=== PATIENT | female | born 1965 | race Caucasian/White ===

== ENCOUNTER 2016-06-12 22:41 | Emergency (ER) | payer OTHER ==
[~2016-06-12] VITALS: Ht 172.7 cm; Wt 90.7 kg
[~2016-06-12 22:41] MED LIST: BUPROPION HCL300 MG PO; BUPROPION XL300 M1 PO; CARISOPRODOL350 M1 PO; CARISOPRODOL350 MG PO; CLONAZEPAM1 MG PO; CRANBERRY FRUI425 MG PO; DOCUSATE100 MG PO; DULOXETINE HCL30 MG PO; FLOVENT HF0.22 MG/Ac INH; FLOVENT HFA12 G1 INH; KLONOPIN1 M1 PO; MEDROL4 M2 PO; NAPROXEN500 M2 PO; NASONEX17 GM NASB; NICOTINE T21 MG/24 H TOP; OXYCODONE HCL15 MG PO; PREDNISONE 20MG20 MG PO; PROAIR HFA0.09 MG/Ac INH; PROAIR HFA8.5 GM INH; THEOPHYLLINE A300 MG PO; THEOPHYLLINE300 MG PO; TRIAMCINOLONE A15 G2 TOP; VALACYCLOVIR1 GM PO; ZITHROMAX Z-PA250 M1 PO
--- NOTE | 2016-06-12 23:01 | ED PSYCHIATRIC COMPLAINT ---
History of Present Illness General Chief Complaint: Psychiatric Related Complaint Stated Complaint: BIBA, +SI Source: patient, old records, EMS, police Exam Limitations: no limitations Vital Signs & Intake/Output Vital Signs & Intake/Output Vital Signs Date Time Temp Pulse Resp B/P Pulse O2 O2 Flow FiO2 Ox Delivery Rate 06/13 0618 97.3 90 20 133/95 97 Room Air 06/13 0244 97.7 89 18 135/75 97 Room Air 06/12 2348 96.8 88 18 123/58 95 Room Air ED Intake and Output 06/13 0000 06/12 1200 Intake Total Output Total Balance Patient 200 lb Weight Allergies Coded Allergies: Sulfa (Sulfonamide Antibiotics) (Severe, UNKNOWN 06/22/15) ibuprofen (EYE SWELLING 06/22/15) naproxen (ANKLE SWELLING 06/22/15) Reconcile Medications Albuterol Sulfate (Proair Hfa) 0.09 MG/Actuation FAIZA 2 PUFF INH TID PRN ASTHMA (Reported) Albuterol Sulfate (Proair Hfa) 8.5 GM HFA.AER.AD 2 PUF INH Q4-6 PRN PRN asthma Azithromycin (Zithromax Z-Triston) 250 MG CAP 1 DP PO AD . 2 the first day followed by 1 for days 2-5 BUPROPION HCL (Bupropion XL) 300 MG TAB.ER.24H 1 TAB PO DAILY SMOKING CESSATION (Reported) Bupropion HCl (Bupropion XL) 300 MG TAB.ER.24H 1 TAB PO DAILY depression Carisoprodol 350 MG TABLET 1 TAB PO TID PRN MUSCLE RELAXER (Reported) Carisoprodol 350 MG TABLET 1 TAB PO TIDPRN PRN PAIN Clonazepam 1 MG TABLET 1 TAB PO TID PRN ANXIETY (Reported) Clonazepam (Klonopin) 1 MG TABLET 1 TAB PO DAILY depression Cranberry (Cranberry Fruit) (Unknown Strength) CAP (Unknown Dose) PO DAILY SUPPLEMENT (Reported) Docusate Sodium 100 MG CAPSULE 1 SGL PO BID SUPPLEMENT (Reported) Duloxetine HCl 30 MG CAPSULE.DR 1 CAP PO DAILY fibromyalgia Fluticasone Propionate (Flovent Hfa) 0.22 MG/Actuation FAIZA 2 PUFF INH BID ASTHMA (Reported) 220 MCG PER PUFF Fluticasone Propionate (Flovent Hfa) 12 GM AER.W.ADAP 2 PUF INH BID asthma Methylprednisolone. (Medrol) 4 MG TAB.DS.PK 1 DP PO AD wheezing, laryngitis, back Mometasone Furoate (Nasonex) 17 GM SPRAY.PUMP 2 SPRAY NASB DAILY rhinitis Naproxen 500 MG TABLET 1 TAB PO BID pain Nicotine (Nicotine Transdermal System) 21 MG/24 HR TDM 1 PATCH TOP DAILY SMOKING CESSATION (Reported) OXYCODONE HCL (Oxycodone HCl) 15 MG TABLET 1 TAB PO 4 TIMES/DAY PRN PAIN ( Reported) Prednisone 20 MG TABLET 1 TAB PO AD INFLAMMATION 3 TABS PO DAY 1-3 2 TABS PO DAY 4-6 1 TAB PO DAY 7-9 THEOPHYLLINE ANHYDROUS (Theophylline Anhydrous) 300 MG TAB.ER.12H 1 TAB PO DAILY ASTHMA (Reported) Theophylline Anhydrous 300 MG TAB.ER.12H 1 TAB PO BID . Triamcinolone Acetonide 15 GM CREAM..G. 1 BRANDIE TOP BID exzcema 0.1% cream: apply to affected area(s) VALACYCLOVIR HCL (Valacyclovir) 1,000 MG TABLET 1 TAB PO BID HERPES (Reported ) Triage Note: PT BIBA ON POLICE PAPER. PER PD PT TOLD THEM "IM JUST TIRED OF LIVING, IM DEPRESSED". PT TOLD FRIEND THAT SHE WAS GOING TO HARM HERSELF. PER EMS PT TOOK CLONIPIN AND DRANK TWO GLASSES OF VODKA MIXED WITH TOMATO JUICE. PT ARRIVES RESISTANT TO STAFF, NON-COMBATIVE BUT ARGUMENTATIVE AND NON-COMPLIANT WITH REQUESTS. Triage Nurses Notes Reviewed? yes HPI: Patient brought in on a police paper for suicidal ideations. Patient was drinking tonight and took Klonopin. Patient states that she was having problems with her apartment and stated that she might as well to speak . Patient denies any true suicidal ideation. Patient denies any homicidal ideations. Patient denies any hallucinations. There is no plan. (BRAYDEN KITCHEN,KAROL Nuñez) Past History Travel History Traveled to [place] past 21 day No Medical History Any Pertinent Medical History? 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 No (BRAYDEN KITCHEN,KAROL Nuñez) Review of Systems Review of Systems Constitutional: Reports: no symptoms. EENTM: Reports: no symptoms. Respiratory: Reports: no symptoms. Cardiovascular: Reports: no symptoms. GI: Reports: no symptoms. Genitourinary: Reports: no symptoms. Musculoskeletal: Reports: no symptoms. Skin: Reports: no symptoms. Neurological/Psychological: Reports: see HPI, depressed. Hematologic/Endocrine: Reports: no symptoms. Immunologic/Allergic: Reports: no symptoms. All Other Systems: Reviewed and Negative (BRAYDEN KITCHEN,KAROL Nuñez) Physical Exam Physical Exam General Appearance: well developed/nourished, mild distress Head: atraumatic Eyes: Bilateral: PERRL, EOMI. Ears, Nose, Throat: normal pharynx, normal ENT inspection, hearing grossly normal Neck: normal inspection, supple Respiratory: normal breath sounds Cardiovascular: regular rate/rhythm Gastrointestinal: soft, non-tender Extremities: normal range of motion Neurological/Psychiatric: no motor/sensory deficits, awake, agitated, alert, oriented x 3 Appearance/Memory/Insight: appropriate appearance, appropriate insight Behavoir/Eye Contact/Speech: cooperative, normal speech, good eye contact Thoughts/Hallucinations: normal thought pattern, no apparent hallucination Skin: intact, normal color, warm/dry SAD PERSONS Done? CRISIS CONSULT OBTAINED (BRAYDEN KITCHEN,KAROL Nuñez) Progress Differential Diagnosis: drug intoxication, drug overdose, drug withdrawal, electrolyte abnormality Plan of Care: Orders Procedure Date/time Status Regular Diet 06/13 B Active Continuous Observation Monitor 06/13 1900 Active Continuous Observation Monitor 06/13 1500 Active Continuous Observation Monitor 06/13 1100 Active Continuous Observation Monitor 06/13 0700 Active Continuous Observation Monitor 06/12 230 Active URINE DRUGS OF ABUSE 06/12 230 Complete ETHANOL 06/12 2300 Complete COMPREHENSIVE METABOLIC PANEL 06/12 2300 Complete CBC WITHOUT DIFFERENTIAL 06/12 2300 Complete ED CRISIS PSYCH CONSULT 06/12 230 Active Current Medications Sig/Wilfredo Start time Last Medication Dose Stop Time Status Admin Albuterol Sulfate 2 PUF Q4P PRN 06/13 0730 AC (Ventolin) Laboratory Tests 06/13/16 0248: Urine Opiates Screen 306.00, Methadone Screen < 40, Barbiturate Screen < 60, Ur Phencyclidine Scrn < 6.00, Amphetamines Screen 126, U Benzodiazepines Scrn 147, Urine Cocaine Screen < 50, Urine Cannabis Screen 12.70 06/12/16 2314: Anion Gap 13, Estimated GFR > 60, BUN/Creatinine Ratio 23.3, Glucose 99, Calcium 9.6, Total Bilirubin 0.2, AST 122 H, ALT 92 H, Alkaline Phosphatase 136 H, Total Protein 6.2 L, Albumin 3.5, Globulin 2.7, Albumin/Globulin Ratio 1.3, CBC w Diff NO MAN DIFF REQ, RBC 3.73 L, MCV 102.0 H, MCH 34.3 H, RDW 14.1, MPV 7.7, Gran % 50.8, Lymphocytes % 31.6, Monocytes % 9.0, Eosinophils % 8.0 H, Basophils % 0.6, Absolute Granulocytes 2.4, Absolute Lymphocytes 1.5, Absolute Monocytes 0.4, Absolute Eosinophils 0.4, Absolute Basophils 0, PUBS MCHC 33.7, Serum Alcohol 128.0 Hand-Off Endorsed To: KIM PETERS MD Endorsed Time: 0700 Pending: consult (BRAYDEN KITCHEN,KAROL Nuñez) Comments: Now sober, no suicidal ideation. (KIM PETERS MD) Departure Departure Condition: Stable Referrals: JEANIE COOK MD (PCP/Family) (KAROL OWEN MD) Departure Time of Disposition: 740 Disposition: HOME OR SELF CARE Clinical Impression Primary Impression: Depressed Qualifiers: Depression Type: unspecified Qualified Code: F32.9 - Major depressive disorder, single episode, unspecified Secondary Impressions: Alcohol intoxication delirium Departure Forms: General Discharge Information (KIM PETERS MD)
[2016-06-12 23:34] LABS: ABSOLUTE BASOPHIL COUNT 0 /CUMM (0.0-0.2); ABSOLUTE EOSINOPHIL COUNT 0.4 /CUMM (0.0-0.7); ABSOLUTE GRANULOCYTE CT 2.4 /CUMM (1.4-6.5); ABSOLUTE LYMPH COUNT 1.5 /CUMM (1.2-3.4); ABSOLUTE MONOCYTE COUNT 0.4 /CUMM (0.10-0.60); BASOPHIL % 0.6 % (0.0-2.0); GRANULOCYTE % 50.8 % (42.2-75.2); MEAN CORPUSCULAR HGB 34.3 PG (27.0-31.0); MEAN CORPUSCULAR HGB CONC 33.7 G/DL (33.0-37.0); MEAN PLATELET VOLUME 7.7 FL (7.4-10.4); PLATELET COUNT 252 /CUMM (130-400); RBC DISTRIBUTION WIDTH 14.1 % (11.5-14.5); RED BLOOD CELL CT 3.73 /CUMM (4.20-5.40); WHITE BLOOD CELL COUNT 4.7 /CUMM (4.8-10.8)
[2016-06-13 07:50] VITALS: BP 122/60
== END 2016-06-13 07:45 ==
LOC: ERH 22:41
PROVIDERS: Emergency Medicine
DX: F32.9 Major depressive disorder, single episode, unspecified (principal); F10.121 Alcohol abuse with intoxication delirium
CPT/HCPCS: 80307; G0480; J3490

== ENCOUNTER 2016-08-25 09:23 | Emergency (ER) | payer OTHER ==
[~2016-08-25] VITALS: Ht 170.2 cm; Wt 90.7 kg
--- NOTE | 2016-08-25 11:41 | ED GENERAL ADULT ---
History of Present Illness General Chief Complaint: Low Back Pain/Injury Stated Complaint: CHRONIC LBP,HIP PAIN Vital Signs & Intake/Output Vital Signs & Intake/Output Vital Signs Date Time Temp Pulse Resp B/P B/P Pulse O2 O2 Flow FiO2 Mean Ox Delivery Rate 08/25 1150 97.4 104 18 133/91 92 Room Air 08/25 1010 97.5 114 18 138/89 98 Room Air Allergies Coded Allergies: Sulfa (Sulfonamide Antibiotics) (Severe, UNKNOWN 06/22/15) ibuprofen (EYE SWELLING 06/22/15) naproxen (ANKLE SWELLING 06/22/15) Reconcile Medications Albuterol Sulfate (Proair Hfa) 0.09 MG/Actuation FAIZA 2 PUFF INH TID PRN ASTHMA (Reported) Albuterol Sulfate (Proair Hfa) 8.5 GM HFA.AER.AD 2 PUF INH Q4-6 PRN PRN asthma Azithromycin (Zithromax Z-Triston) 250 MG CAP 1 DP PO AD . 2 the first day followed by 1 for days 2-5 BUPROPION HCL (Bupropion XL) 300 MG TAB.ER.24H 1 TAB PO DAILY SMOKING CESSATION (Reported) Bupropion HCl (Bupropion XL) 300 MG TAB.ER.24H 1 TAB PO DAILY depression Carisoprodol 350 MG TABLET 1 TAB PO TID PRN MUSCLE RELAXER (Reported) Carisoprodol 350 MG TABLET 1 TAB PO TIDPRN PRN PAIN Cephalexin (Keflex) 500 MG CAPSULE 1 CAP PO TID cellulitis Clonazepam 1 MG TABLET 1 TAB PO TID PRN ANXIETY (Reported) Clonazepam (Klonopin) 1 MG TABLET 1 TAB PO DAILY depression Cranberry (Cranberry Fruit) (Unknown Strength) CAP (Unknown Dose) PO DAILY SUPPLEMENT (Reported) Docusate Sodium 100 MG CAPSULE 1 SGL PO BID SUPPLEMENT (Reported) Duloxetine HCl 30 MG CAPSULE.DR 1 CAP PO DAILY fibromyalgia Fluticasone Propionate (Flovent Hfa) 0.22 MG/Actuation FAIZA 2 PUFF INH BID ASTHMA (Reported) 220 MCG PER PUFF Fluticasone Propionate (Flovent Hfa) 12 GM AER.W.ADAP 2 PUF INH BID asthma Methylprednisolone. (Medrol) 4 MG TAB.DS.PK 1 DP PO AD wheezing, laryngitis, back Mometasone Furoate (Nasonex) 17 GM SPRAY.PUMP 2 SPRAY NASB DAILY rhinitis Naproxen 500 MG TABLET 1 TAB PO BID pain Nicotine (Nicotine Transdermal System) 21 MG/24 HR TDM 1 PATCH TOP DAILY SMOKING CESSATION (Reported) OXYCODONE HCL (Oxycodone HCl) 15 MG TABLET 1 TAB PO 4 TIMES/DAY PRN PAIN ( Reported) Prednisone 20 MG TABLET 1 TAB PO AD INFLAMMATION 3 TABS PO DAY 1-3 2 TABS PO DAY 4-6 1 TAB PO DAY 7-9 THEOPHYLLINE ANHYDROUS (Theophylline Anhydrous) 300 MG TAB.ER.12H 1 TAB PO DAILY ASTHMA (Reported) Theophylline Anhydrous 300 MG TAB.ER.12H 1 TAB PO BID . VALACYCLOVIR HCL (Valacyclovir) 1,000 MG TABLET 1 TAB PO BID HERPES (Reported ) Triage Note: PT COMPLAINS OF CHRONIC LOW BACK PAIN THAT HAS BEEN INCREASING OVER THE PAST 2 MONTHS. PT TAKES OXYCODONE,SOMA,NAPROXEN, LIDOCAINE PATCHES. PT STATES THAT SHE HAD APPOINTMENT WITH HER PMD AND IS SUPOSSED TO MAKE APPOINTMENT WITH [facility] TO GET INTO PAIN MANAGEMENT. STATES THAT SHE CANT WALK AROUND, THAT IT HURTS TO SIT ON TOILET. 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
--- NOTE | 2016-08-25 12:11 | ED NECK/BACK PAIN COMPLAINT ---
History of Present Illness General Chief Complaint: Low Back Pain/Injury Stated Complaint: CHRONIC LBP,HIP PAIN Vital Signs & Intake/Output Vital Signs & Intake/Output Vital Signs Date Time Temp Pulse Resp B/P B/P Pulse O2 O2 Flow FiO2 Mean Ox Delivery Rate 08/25 1010 97.5 114 18 138/89 98 Room Air Allergies Coded Allergies: Sulfa (Sulfonamide Antibiotics) (Severe, UNKNOWN 06/22/15) ibuprofen (EYE SWELLING 06/22/15) naproxen (ANKLE SWELLING 06/22/15) Reconcile Medications Albuterol Sulfate (Proair Hfa) 0.09 MG/Actuation FAIZA 2 PUFF INH TID PRN ASTHMA (Reported) Albuterol Sulfate (Proair Hfa) 8.5 GM HFA.AER.AD 2 PUF INH Q4-6 PRN PRN asthma Azithromycin (Zithromax Z-Triston) 250 MG CAP 1 DP PO AD . 2 the first day followed by 1 for days 2-5 BUPROPION HCL (Bupropion XL) 300 MG TAB.ER.24H 1 TAB PO DAILY SMOKING CESSATION (Reported) Bupropion HCl (Bupropion XL) 300 MG TAB.ER.24H 1 TAB PO DAILY depression Carisoprodol 350 MG TABLET 1 TAB PO TID PRN MUSCLE RELAXER (Reported) Carisoprodol 350 MG TABLET 1 TAB PO TIDPRN PRN PAIN Clonazepam 1 MG TABLET 1 TAB PO TID PRN ANXIETY (Reported) Clonazepam (Klonopin) 1 MG TABLET 1 TAB PO DAILY depression Cranberry (Cranberry Fruit) (Unknown Strength) CAP (Unknown Dose) PO DAILY SUPPLEMENT (Reported) Docusate Sodium 100 MG CAPSULE 1 SGL PO BID SUPPLEMENT (Reported) Duloxetine HCl 30 MG CAPSULE.DR 1 CAP PO DAILY fibromyalgia Fluticasone Propionate (Flovent Hfa) 0.22 MG/Actuation FAIZA 2 PUFF INH BID ASTHMA (Reported) 220 MCG PER PUFF Fluticasone Propionate (Flovent Hfa) 12 GM AER.W.ADAP 2 PUF INH BID asthma Methylprednisolone. (Medrol) 4 MG TAB.DS.PK 1 DP PO AD wheezing, laryngitis, back Mometasone Furoate (Nasonex) 17 GM SPRAY.PUMP 2 SPRAY NASB DAILY rhinitis Naproxen 500 MG TABLET 1 TAB PO BID pain Nicotine (Nicotine Transdermal System) 21 MG/24 HR TDM 1 PATCH TOP DAILY SMOKING CESSATION (Reported) OXYCODONE HCL (Oxycodone HCl) 15 MG TABLET 1 TAB PO 4 TIMES/DAY PRN PAIN ( Reported) Prednisone 20 MG TABLET 1 TAB PO AD INFLAMMATION 3 TABS PO DAY 1-3 2 TABS PO DAY 4-6 1 TAB PO DAY 7-9 THEOPHYLLINE ANHYDROUS (Theophylline Anhydrous) 300 MG TAB.ER.12H 1 TAB PO DAILY ASTHMA (Reported) Theophylline Anhydrous 300 MG TAB.ER.12H 1 TAB PO BID . Triamcinolone Acetonide 15 GM CREAM..G. 1 BRANDIE TOP BID exzcema 0.1% cream: apply to affected area(s) VALACYCLOVIR HCL (Valacyclovir) 1,000 MG TABLET 1 TAB PO BID HERPES (Reported ) Triage Note: PT COMPLAINS OF CHRONIC LOW BACK PAIN THAT HAS BEEN INCREASING OVER THE PAST 2 MONTHS. PT TAKES OXYCODONE,SOMA,NAPROXEN, LIDOCAINE PATCHES. PT STATES THAT SHE HAD APPOINTMENT WITH HER PMD AND IS SUPOSSED TO MAKE APPOINTMENT WITH [facility] TO GET INTO PAIN MANAGEMENT. STATES THAT SHE CANT WALK AROUND, THAT IT HURTS TO SIT ON TOILET. PT CRYING AT TRIAGE Triage Nurses Notes Reviewed? 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
--- NOTE | 2016-08-25 12:34 | ED UPPER/LOWER EXTREMITY COMPL ---
History of Present Illness General Chief Complaint: Low Back Pain/Injury Stated Complaint: CHRONIC LBP,HIP PAIN Source: patient Exam Limitations: no limitations Vital Signs & Intake/Output Vital Signs & Intake/Output Vital Signs Date Time Temp Pulse Resp B/P B/P Pulse O2 O2 Flow FiO2 Mean Ox Delivery Rate 08/25 1502 97.9 101 18 138/66 Room Air 08/25 1150 97.4 104 18 133/91 92 Room Air 08/25 1010 97.5 114 18 138/89 98 Room Air Allergies Coded Allergies: Sulfa (Sulfonamide Antibiotics) (Severe, UNKNOWN 06/22/15) ibuprofen (EYE SWELLING 06/22/15) naproxen (ANKLE SWELLING 06/22/15) Triage Note: PT COMPLAINS OF CHRONIC LOW BACK PAIN THAT HAS BEEN INCREASING OVER THE PAST 2 MONTHS. PT TAKES OXYCODONE,SOMA,NAPROXEN, LIDOCAINE PATCHES. PT STATES THAT SHE HAD APPOINTMENT WITH HER PMD AND IS SUPOSSED TO MAKE APPOINTMENT WITH [facility] TO GET INTO PAIN MANAGEMENT. STATES THAT SHE CANT WALK AROUND, THAT IT HURTS TO SIT ON TOILET. PT CRYING AT TRIAGE Triage Nurses Notes Reviewed? yes Onset: Abrupt Duration: day(s): (2-3) Timing: single episode today Severity: moderate, severe Severity Numbers: 10 Pain/Injury Location: Bilateral: Leg. No Modifying Factors: none Associated Symptoms: swelling, redness LMP (ages 10-50): post menopausal : No Patient currently breastfeeds: No HPI: 51-year-old female with history of chronic low back pain and chronic hip pain presents complaining of pain in her bilateral lower extremities for the past few days. Patient reports that she noticed redness swelling and pain in her left lower extremity extending from her foot up her leg. Patient additionally reports pain and swelling in her right lower extremity without any redness. She reports that she was hospitalized with cellulitis last year. She denies any trauma to the area, fevers, discharge, numbness, or tingling. Patient reports she's been taking oxycodone prescribed by her primary care doctor without significant improvement. (BRADY SALGADO,FITZ) Reconcile Medications Albuterol Sulfate (Proair Hfa) 0.09 MG/Actuation FAIZA 2 PUFF INH TID PRN ASTHMA (Reported) Albuterol Sulfate (Proair Hfa) 8.5 GM HFA.AER.AD 2 PUF INH Q4-6 PRN PRN asthma Azithromycin (Zithromax Z-Triston) 250 MG CAP 1 DP PO AD . 2 the first day followed by 1 for days 2-5 BUPROPION HCL (Bupropion XL) 300 MG TAB.ER.24H 1 TAB PO DAILY SMOKING CESSATION (Reported) Bupropion HCl (Bupropion XL) 300 MG TAB.ER.24H 1 TAB PO DAILY depression Carisoprodol 350 MG TABLET 1 TAB PO TID PRN MUSCLE RELAXER (Reported) Carisoprodol 350 MG TABLET 1 TAB PO TIDPRN PRN PAIN Cephalexin (Keflex) 500 MG CAPSULE 1 CAP PO TID cellulitis Clonazepam 1 MG TABLET 1 TAB PO TID PRN ANXIETY (Reported) Clonazepam (Klonopin) 1 MG TABLET 1 TAB PO DAILY depression Cranberry (Cranberry Fruit) (Unknown Strength) CAP (Unknown Dose) PO DAILY SUPPLEMENT (Reported) Docusate Sodium 100 MG CAPSULE 1 SGL PO BID SUPPLEMENT (Reported) Duloxetine HCl 30 MG CAPSULE.DR 1 CAP PO DAILY fibromyalgia Fluticasone Propionate (Flovent Hfa) 0.22 MG/Actuation FAIZA 2 PUFF INH BID ASTHMA (Reported) 220 MCG PER PUFF Fluticasone Propionate (Flovent Hfa) 12 GM AER.W.ADAP 2 PUF INH BID asthma Methylprednisolone. (Medrol) 4 MG TAB.DS.PK 1 DP PO AD wheezing, laryngitis, back Mometasone Furoate (Nasonex) 17 GM SPRAY.PUMP 2 SPRAY NASB DAILY rhinitis Naproxen 500 MG TABLET 1 TAB PO BID pain Nicotine (Nicotine Transdermal System) 21 MG/24 HR TDM 1 PATCH TOP DAILY SMOKING CESSATION (Reported) OXYCODONE HCL (Oxycodone HCl) 15 MG TABLET 1 TAB PO 4 TIMES/DAY PRN PAIN ( Reported) Prednisone 20 MG TABLET 1 TAB PO AD INFLAMMATION 3 TABS PO DAY 1-3 2 TABS PO DAY 4-6 1 TAB PO DAY 7-9 THEOPHYLLINE ANHYDROUS (Theophylline Anhydrous) 300 MG TAB.ER.12H 1 TAB PO DAILY ASTHMA (Reported) Theophylline Anhydrous 300 MG TAB.ER.12H 1 TAB PO BID . VALACYCLOVIR HCL (Valacyclovir) 1,000 MG TABLET 1 TAB PO BID HERPES (Reported ) (ISAEL HIGHTOWER DO) Past History Travel History Traveled to [place] past 21 day No Medical History Any Pertinent Medical History? see below for history Neurological: NONE EENT: laryngitis Cardiovascular: NONE Respiratory: asthma Gastrointestinal: NONE Hepatic: NONE Renal: NONE Musculoskeletal: CHRONIC BACK PROBLEMS CELLULITIS Psychiatric: anxiety, depression Endocrine: NONE Blood Disorders: NONE Cancer(s): CERVICAL X 3 VECTOR CONTROL SPECIALIST/Reproductive: NONE Surgical History Surgical History: non-contributory Psychosocial History What is your primary language Greek Tobacco Use: Never used ETOH Use: denies use Illicit Drug Use: denies illicit drug use Family History Hx Contributory? No (FITZ ABREU PA-C) Review of Systems Review of Systems Constitutional: Reports: no symptoms. EENTM: Reports: no symptoms. Respiratory: Reports: no symptoms. Cardiovascular: Reports: no symptoms. Gastrointestinal/Abdominal: Reports: no symptoms. Genitourinary: Reports: no symptoms. Musculoskeletal: Reports: joint pain, muscle pain. Skin: Reports: no symptoms. Neurological/Psychological: Reports: no symptoms. Hematologic/Endocrine: Reports: no symptoms. Immunological: Reports: no symptoms. All Other Systems: Reviewed and Negative (BRADY SALGADO,FITZ) Physical Exam Physical Exam General Appearance: well developed/nourished, no apparent distress, alert, awake , anxious Head: atraumatic, normal appearance Eyes: Bilateral: normal appearance, PERRL, EOMI. Ears, Nose, Throat: normal pharynx, normal ENT inspection, hearing grossly normal Neck: normal inspection, supple, full range of motion Cardiovascular/Respiratory: normal breath sounds, normal peripheral pulses, regular rate/rhythm, no respiratory distress Peripheral Pulses: 2+ tibialis posterior (R), 2+ tibialis posterior (L), 2+ dorsalis pedis (R), 2+ dorsalis pedis (L) Back: normal inspection, normal range of motion, no vertebral tenderness Lower Extremity Reflexes: 2+: knee (R), knee (L). Neurologic/Tendon: normal sensation, normal motor functions, normal tendon functions, responds to pain, no evidence tendon injury, no pulse deficit Skin: intact, normal color, warm/dry Lymphatic: no anterior cervical elham Comments: There is nonpitting edema of the bilateral lower extremity. There is an 4 cm diameter area of erythema and warmth located on the dorsum of the left foot. There is a lymphatic streaking moving up the left anterior leg. The left calf is tender to palpation. Full range of motion of the bilateral lower extremity is intact. No focal fluctuant areas or discharge. Neurovascular supply is intact. (FITZ ABREU PA-C) Progress Differential Diagnosis: arterial insufficiency, cellulitis, DVT, gout, septic arthritis, sprain, tendon injury Diagnostic Imaging: Viewed by Me: Ultrasound. Comments: EXAM TYPE: US - US-EXT BILAT VENOUS DOPPLER EXAMINATION: US TRIPLEX OF LOWER EXTREMITIES, BILATERAL CLINICAL INFORMATION: Bilateral lower extremity edema and swelling. COMPARISON: None TECHNIQUE: Color-flow triplex imaging with spectral analysis and compression Doppler were performed on the lower extremities. FINDINGS: Respiratory variation, normal compression and augmented flow are noted throughout the lower extremities. The visualized common femoral vein, superficial femoral vein, profunda femoral vein, popliteal vein and midcalf peroneal and posterior tibial venous segments show no evidence of deep venous thrombosis. There is no Mitchell's cyst. IMPRESSION: Normal triplex scan without evidence of deep venous thrombosis involving the lower extremities. DICTATED BY: DAO FUENTES MD DATE/TIME DICTATED:08/25/161316 TRANSFER DRIVER:MALINI DATE/TIME TRANSCRIBED:08/25/161316 (FITZ ABREU PA-C) Plan of Care: Orders Procedure Date/time Status Regular Diet 08/25 D Active 12:32 PM patient seen and evaluated. There is evidence of cellulitis of the left foot extending up into the left lower extremity. Patient will be given a dose of IV Unasyn followed by PO KEFLEX . We will also get an ultrasound of bilateral lower extremities to rule out DVT. 1:41 PM patient given IV Unasyn and IV Tylenol and reports improvement in pain. Also ultra sound of the bilateral lower extremities is negative for DVT. Patient be discharged home on Keflex 3 times a day 10 days. Patient has oxycodone and Soma at home already that she uses for pain. She'll use these medications as directed. Reviewed all results of today's visit with patient. She'll make a follow-up appointment with her primary care doctor this week. She is nontoxic appearing at discharge and is in agreement with the plan. (FITZ ABREU PA-C) Departure Departure Disposition: HOME OR SELF CARE Condition: Stable Clinical Impression Primary Impression: Cellulitis of left lower extremity Referrals: JEANIE COOK MD (PCP/Family) Additional Instructions: Rest, keep your Legs elevated. Take antibiotics as directed for the full course and take a probiotic to place of the bacteria. Monitor the area for any worsening symptoms such as increasing pain spreading redness, swelling, fever or discharge. Make a follow-up appointment with her primary care doctor this week. Return to the emergency department with any concerns. Departure Forms: Customer Survey General Discharge Information Prescriptions: Current Visit Scripts Cephalexin (Keflex) 1 CAP PO TID #30 CAP (FITZ ABREU PA-C) PA/TRANSPORT SPECIALIST Co-Sign Statement Statement: ED Attending supervision documentation- [] I saw and evaluated the patient. I have also reviewed all the pertinent lab results and diagnostic results. I agree with the findings and the plan of care as documented in the PA's/TRANSPORT SPECIALIST's documentation. [x] I have reviewed the ED Record and agree with the PA's/TRANSPORT SPECIALIST's documentation. [] Additions or exceptions (if any) to the PAs/TRANSPORT SPECIALIST's note and plan are summarized below: [] (ISAEL HIGHTOWER DO
--- NOTE | 2016-08-25 13:24 | ULTRASOUND REPORT ---
EXAMINATION: US TRIPLEX OF LOWER EXTREMITIES, BILATERAL CLINICAL INFORMATION: Bilateral lower extremity edema and swelling. COMPARISON: None TECHNIQUE: Color-flow triplex imaging with spectral analysis and compression Doppler were performed on the lower extremities. FINDINGS: Respiratory variation, normal compression and augmented flow are noted throughout the lower extremities. The visualized common femoral vein, superficial femoral vein, profunda femoral vein, popliteal vein and midcalf peroneal and posterior tibial venous segments show no evidence of deep venous thrombosis. There is no Mitchell's cyst. IMPRESSION: Normal triplex scan without evidence of deep venous thrombosis involving the lower extremities.
[2016-08-25] MEDS ORDERED: KEFLEX500 M1 PO (13:49)
[2016-08-25 15:02] VITALS: BP 138/66
== END 2016-08-25 15:24 ==
LOC: ERH 09:23
DX: L03.116 Cellulitis of left lower limb (principal); M79.89 Other specified soft tissue disorders
CPT/HCPCS: 93970; 96374; 96375; J0131